=== PATIENT | female | born 1990 | race Caucasian/White ===

== ENCOUNTER 2019-07-29 22:28 | Emergency (ER) | payer OTHER ==
--- NOTE | 2019-07-29 22:36 | PDOC ---
History of Present Illness - General Chief Complaint: Blood Pressure Problem Stated Complaint: HIGH BLOOD PRESSURE - History of Present Illness Initial Comments: The pt is a 29F at 11 wks by LMP who presents for evaluation of high blood pressure and PIMENTEL. The pt states she took her BP at home and noted it was high. She is concerned because in her previous she was hospitalized for 3 three months due to pre-eclampsia. Endorses current, pressure-like PIMENTEL that was gradual onset, b/l, non-radiating, and not exacerbated or alleviated by anything she can identify PMH: pre-eclampsia PSH: C/S (2013) Meds: Prenatals SH: Denies x3 07/29/19 22:40 Past History - Past Medical History Allergies/Adverse Reactions: Allergies Allergy/AdvReac Type Severity Reaction Status Date / Time No Known Allergies Allergy Verified 07/29/19 22:33 COPD: No - Psycho Social/Smoking Cessation Hx Smoking History: Never smoked Review of Systems - Review of Systems Able to Perform ROS?: Yes Comments:: GENERAL/CONSTITUTIONAL: No fever or chills. No weakness HEAD, EYES, EARS, NOSE AND THROAT: No change in vision. No change in hearing. No sore throat CARDIOVASCULAR: No chest pain or shortness of breath RESPIRATORY: Denies cough, hemoptysis GASTROINTESTINAL: No nausea, vomiting, diarrhea or constipation GENITOURINARY: No dysuria, frequency, or change in urination MUSCULOSKELETAL: No joint or muscle swelling or pain. No neck or back pain SKIN: No rash NEUROLOGIC: No vertigo, loss of consciousness, or change in strength/sensation ENDOCRINE: No increased thirst. No abnormal weight change HEMATOLOGIC/LYMPHATIC: No anemia, easy bleeding, or history of blood clots ALLERGIC/IMMUNOLOGIC: No hives or skin allergy 07/29/19 22:36 Is the patient limited Citizen Of [place] proficient: No *Physical Exam - Vital Signs Last Vital Signs Temp Pulse Resp BP Pulse Ox 98.0 F 76 18 141/94 98 07/29/19 22:30 07/29/19 22:30 07/29/19 22:30 07/29/19 22:30 07/29/19 22:30 - Physical Exam GENERAL: Awake, alert, and oriented to person/place/time, in no acute distress HEAD: No signs of trauma, normocephalic, atraumatic EYES: PERRLA, EOMI, sclera anicteric, conjunctiva clear ENT: Hearing grossly normal, nares patent, oropharynx clear without exudates. Moist mucosa LUNGS: No distress, speaks in full sentences, clear to auscultation bilaterally _ HEART: Regular rate and rhythm, normal S1 and S2, no murmurs appreciated, peripheral pulses normal and equal bilaterally._ ABDOMEN: Soft, nontender, normoactive bowel sounds. No guarding, no rebound. No masses_ EXTREMITIES: Normal inspection, Normal range of motion, no edema. No clubbing or cyanosis_ NEUROLOGICAL: Cranial nerves II through XII grossly intact. Normal speech, normal gait, no focal sensorimotor deficits _ SKIN: Warm, Dry 07/29/19 22:36 ED Treatment Course - LABORATORY CBC & Chemistry Diagram: 07/29/19 23:17 07/29/19 23:17 Medical Decision Making - Medical Decision Making The pt is a 29F at 11 wks by LMP who presents for evaluation of HTN and PIMENTEL ED Course CMP, CBC, Beta-quant, UA IVF, Tylenol POCUS w/ IUP, FHT 146 07/29/19 23:27 UA w/o evidence of UTI 07/29/19 23:31 No leukocytosis No anemia 07/29/19 23:58 Repeat BP 130/85 Pt feels PIMENTEL improving CMP/beta-quant still pending 07/30/19 00:38 Lytes unremarkable LFTs wnl No JANICE Beta-quant [id number] Pt feels improved and would like to go home Plan for D/C w/ OBGYN f/u Friday Discharge instructions and return precautions given Patient in agreement and verbalized understanding Dispo: Home 07/30/19 01:02 Discharge - Discharge Information Problems reviewed: Yes Clinical Impression/Diagnosis: Headache Qualifiers: Headache type: unspecified Headache chronicity pattern: unspecified pattern Intractability: not intractable Qualified Code(s): R51 - Headache Hypertension Qualifiers: Hypertension type: unspecified Qualified Code(s): I10 - Essential (primary) hypertension Condition: Stable - Admission No - Follow up/Referral Referrals: Enriqueta Irving [Primary Care Provider] - Meghan Juarez CNM [Certified Nurse General Sales Manager] - - Patient Discharge Instructions Patient Printed Discharge Instructions: DI for High Blood Pressure Additional Instructions: You were seen in the Emergency Department for evaluation of high blood pressure and headache. Your labs were unremarkable. Review the handout provided at discharge. Maintain your follow up with OBGYN on Friday. Return to the Emergency Department if you develop fevers, chest pain, trouble breathing, pain with urination, blood in urine, worsening symptoms, or any new/concerning symptoms. - Post Discharge Activity Work/Back to School Note: Back to Work
[2019-07-29 22:37] VITALS: BMI 28.6
[2019-07-29] MEDS ORDERED: ACETAMINOPHEN 325 MG TABLET (FP) PO ONE ×2 (23:09→23:30)
[2019-07-29] MEDS ORDERED: LACTATED RINGERS SOLUTION 1000 ML INFUS.BAG IV ONE (23:11)
[2019-07-29] MEDS ORDERED: ACETAMINOPHEN 1000 MG/100 ML VIAL (NON FORMULARY) IVPB ONE (23:11)
[2019-07-29] MEDS ORDERED: METOCLOPRAMIDE HCL INJECTION 10 MG/2 ML VIAL IVPB ONE (23:11)
[2019-07-29] MEDS ORDERED: ACETAMINOPHEN 325 MG TABLET (FP) ONE (23:25)
--- NOTE | 2019-07-29 23:27 | PDOC ---
Documentation entered by Arnulfo Bowen SCRIBE, acting as scribe for Rosa Jesus DO. Rosa Jesus DO: This documentation has been prepared by the Andrés michael Daniel, SCRIBE, under my direction and personally reviewed by me in its entirety. I confirm that the documentation accurately reflects all work, treatment, procedures, and medical decision making performed by me. Attending Attestation - Resident Resident Name: Jere Galicia - ED Attending Attestation I have performed the following: I have examined & evaluated the patient, The case was reviewed & discussed with the resident, I agree w/resident's findings & plan, Exceptions are as noted - HPI HPI: 07/29/19 23:13 The patient is a 29 year old female with no past medical history here today for evaluation of high blood pressure. The patient reports that she is 11 weeks and has been getting her blood pressure at home. She states that it has been high with it being 148/98. She also notes associated headaches which happened almost daily and are pressure like. She has been taking tylenol with mild relief and her last dose was at 1 PM. She states that she had high blood pressure during her first and had to be hospitalized for 3 months. Patient denies lightheadedness. Denies fever, chills. Denies chest pain, shortness of breath. Denies nausea, vomiting, diarrhea, abdominal pain. Denies lower extremity edema. Allergies: NKA PCP: Enriqueta Irving - Physicial Exam PE: 07/29/19 23:13 Constitutional: Awake, alert, oriented. No acute distress. Head: Normocephalic. Atraumatic Eyes: PERRL. EOMI. Conjunctivae are not pale. ENT: Mucous membranes are moist and intact. Posterior pharynx without exudates or erythema. Uvula midline. Neck: Supple. Full ROM. No lymphadenopathy. Cardiovascular: Regular rate. Regular rhythm. S1, S2 regular. Distal pulses are 2+ and symmetric. Pulmonary/Chest: No evidence of respiratory distress. Clear to auscultation bilaterally No wheezing, rales or rhonchi. Abdominal: Soft and non-distended. There is no tenderness. No rebound, guarding or rigidity. No organomegaly. No palpable masses. Good bowel sounds. Back: No CVA tenderness. Musculoskeletal: No edema. No cyanosis. No clubbing. Full range of motion in all extremities. No calf tenderness. Radial/pedal pulses are intact and 2+ bilaterally Skin: Skin is warm and dry. No petechiae. No purpura. Neurological: Alert and oriented to person, place, and time. Cranial nerves II-XII are grossly intact. Normal speech. Strength is grossly symmetric. No s ensory deficits. Psychiatric: Good eye contact. Normal interaction, affect and behavior. - Medical Decision Making 07/29/19 23:21 I, Dr. Rosa Jesus, DO, attest that this document has been prepared under my direction and personally reviewed by me in its entirety. I further attest, that it accurately reflects all work, treatment, procedures and medical decision -making performed by me. a/p: 29yo female at 11 weeks gestation with coffman, elevated bp -with prior preg had elevated bp at the end of her preg, was treated in [facility] -pt states intermittent coffman x days and checked her bp at home and it was elevated -pt states she checked her pressure today at home and it was 142/98 -has appt friday with Joanne Juarez but has not see a doc yet with this preg -will send labs, ua -pocus shows an IUP with a crl of 11w4d and fhr 146 -will monitor and reassess -will give tylenol and reglan for pain 07/29/19 23:37 ua neg 07/30/19 00:34 cbc reviewed and stable chem and beta pending 07/30/19 01:02 labs reviewed beta [id number] pt feels better will follow up with RECONSIGNMENT CLERK friday
[2019-07-29 23:31] LABS: PH,URINE 6.5 (5.0-8.0); URINE APPEARANCE CLEAR; URINE BILIRUBIN NEGATIVE (NEGATIVE); URINE COLOR YELLOW; URINE GLUCOSE (UA) NEGATIVE (NEGATIVE); URINE KETONE NEGATIVE (NEGATIVE); URINE LEUK ESTERASE NEGATIVE (NEGATIVE); URINE NITRITE NEGATIVE (NEGATIVE); URINE PROTEIN NEGATIVE (NEGATIVE); URINE UROBILINOGEN 0.2 mg/dL (0.2-1.0)
[2019-07-29 23:31] LABS: BASO % 0.4 % (0-2.0); EOS % 1.4 % (0-4.5); HEMATOCRIT 37.8 % (32.4-45.2); LYMPH % 25.5 % (8-40); MCH 30.9 pg (25.7-33.7); MCHC 34.4 g/dl (32.0-36.0); MEAN CELL VOLUME 89.9 fl (80-96); MEAN PLT VOLUME 7.2 fl (7.5-11.1); MONO % 7.7 % (3.8-10.2); PLATELET COUNT 277 K/MM3 (134-434); RDW 13.3 % (11.6-15.6); WHITE BLOOD COUNT 8.7 K/mm3 (4.0-10.0)
[2019-07-29 23:35] VITALS: BP 131/83; PULSE 80; TEMP 98.2
[2019-07-29] MEDS ORDERED: METOCLOPRAMIDE HCL INJECTION 10 MG/2 ML VIAL ONE (23:42)
[2019-07-30 00:52] LABS: ALBUMIN 3.3 g/dl (3.4-5.0); BILIRUBIN,TOTAL 0.2 mg/dL (0.2-1); BLOOD UREA NITROGEN 6.6 mg/dL (7-18); CALCIUM 8.8 mg/dL (8.5-10.1); CREATININE 0.5 mg/dL (0.55-1.3); POTASSIUM 3.9 mmol/L (3.5-5.1); TOT PROT 6.9 g/dl (6.4-8.2)
== END 2019-07-30 01:19 | disposition home or self-care (01) ==
LOC: JER 22:28
PROC: 3E033GC Introduction of Other Therapeutic Substance into Peripheral Vein, Percutaneous Approach (ICD-10-PCS; principal; 2019-07-29)
PROC: BY49ZZZ Ultrasonography of First Trimester, Single Fetus (ICD-10-PCS; 2019-07-29)
DX: O26.891 Other specified pregnancy related conditions, first trimester (principal); O13.1 Gestational [pregnancy-induced] hypertension without significant proteinuria, first trimester; Z3A.11 11 weeks gestation of pregnancy
CPT/HCPCS: 36415; 76815; 80053; 81003; 84702; 85025; 87086; 96374; 99284-25

== ENCOUNTER 2021-01-26 15:00 | Inpatient (IN) | payer OTHER ==
[2021-01-26] MEDS ORDERED: LIDOCAINE 5% TOPICAL PATCH TP ONE (16:39)
[2021-01-26] MEDS ORDERED: CYCLOBENZAPRINE HCL 10 MG TABLET (FP) PO ONE (16:46)
[2021-01-26] MEDS ORDERED: KETOROLAC TROMETHAMINE 15 MG/ML VIAL IM ONE (16:46)
[2021-01-26] MEDS ORDERED: LIDOCAINE 5% TOPICAL PATCH ONE (16:52)
[2021-01-26] MEDS ORDERED: DEXAMETHASONE 4 MG TABLET (FP) PO ONE (16:56)
[2021-01-26] MEDS ORDERED: diazePAM 5 MG TABLET PO ONE (16:56)
[2021-01-26] MEDS ORDERED: DEXAMETHASONE 4 MG TABLET (FP) ONE (17:02)
[2021-01-26] MEDS ORDERED: KETOROLAC TROMETHAMINE 15 MG/ML VIAL ONE (17:03)
[2021-01-26] MEDS ORDERED: CYCLOBENZAPRINE HCL 10 MG TABLET (FP) ONE (17:03)
[2021-01-26] MEDS ORDERED: diazePAM 5 MG TABLET ONE (17:03)
[2021-01-26 19:26] LABS: BASO % 0.2 % (0-2.0); EOS % 0.1 % (0-4.5); HEMATOCRIT 41.3 % (32.4-45.2); HEMOGLOBIN 14.4 GM/dL (10.7-15.3); LYMPH % 12.3 % (8-40); MCH 29.9 pg (25.7-33.7); MCHC 34.8 g/dl (32.0-36.0); MEAN CELL VOLUME 85.8 fl (80-96); MEAN PLT VOLUME 7.9 fl (7.5-11.1); MONO % 3.1 % (3.8-10.2); NEUT % 84.3 % (42.8-82.8); PLATELET COUNT 307 10^3/uL (134-434); RBC 4.81 M/mm3 (3.60-5.2); RDW 13.4 % (11.6-15.6); WHITE BLOOD COUNT 8.7 K/mm3 (4.0-10.0)
[2021-01-26 19:45] LABS: BLOOD UREA NITROGEN 8.5 mg/dL (7-18); CALCIUM 9.2 mg/dL (8.5-10.1)
[2021-01-26 19:49] LABS: CREATININE 0.6 mg/dL (0.55-1.3)
[2021-01-26] MEDS ORDERED: ACETAMINOPHEN 325 MG TABLET (FP) PO PRN (19:57)
[2021-01-26] MEDS ORDERED: morphine SULFATE 4 MG/ML VIAL IVPUSH PRN (20:33)
[2021-01-26] MEDS ORDERED: LIDOCAINE PATCH REMOVAL MC SCH (22:00)
[2021-01-26] MEDS ORDERED: ACETAMINOPHEN INJECTION 100 ML IVPB ONE (22:59)
[2021-01-26] MEDS: ACETAMINOPHEN 1000 MG/100 ML VIAL (NON FORMULARY) IVPB PRN (23:00)
[2021-01-26 23:15] LABS: PH,URINE 5.5 (5.0-8.0); URINE APPEARANCE CLEAR; URINE BILIRUBIN NEGATIVE (NEGATIVE); URINE COLOR YELLOW; URINE GLUCOSE (UA) NEGATIVE (NEGATIVE); URINE KETONE 2+ (NEGATIVE); URINE LEUK ESTERASE NEGATIVE (NEGATIVE); URINE NITRITE NEGATIVE (NEGATIVE); URINE PROTEIN NEGATIVE (NEGATIVE); URINE UROBILINOGEN 0.2 mg/dL (0.2-1.0)
[2021-01-27] MEDS: MORPHINE SULFATE 2 MG/ML VIAL IVPUSH PRN ×2 (03:10→08:00)
[2021-01-27 03:47] VITALS: BMI 27.2
[2021-01-27 09:12] LABS: HEMATOCRIT 40.5 % (32.4-45.2); HEMOGLOBIN 14.3 GM/dL (10.7-15.3); MCHC 35.2 g/dl (32.0-36.0); MEAN CELL VOLUME 85.4 fl (80-96); MEAN PLT VOLUME 7.7 fl (7.5-11.1); PLATELET COUNT 346 10^3/uL (134-434); RBC 4.75 M/mm3 (3.60-5.2); RDW 13.4 % (11.6-15.6); WHITE BLOOD COUNT 10.2 K/mm3 (4.0-10.0)
[2021-01-27 09:32] LABS: ALBUMIN 3.8 g/dl (3.4-5.0); CALCIUM 9.2 mg/dL (8.5-10.1)
[2021-01-27 09:33] LABS: BLOOD UREA NITROGEN 14.6 mg/dL (7-18); MAGNESIUM 2.1 mg/dL (1.8-2.4)
[2021-01-27 09:36] LABS: CREATININE 0.6 mg/dL (0.55-1.3)
[2021-01-27 09:37] LABS: BILIRUBIN,TOTAL 0.9 mg/dL (0.2-1); TOT PROT 7.6 g/dl (6.4-8.2)
[2021-01-27] MEDS: DOCUSATE SODIUM 100 MG CAPSULE (FP) PO SCH (09:37)
[2021-01-27] MEDS: ENOXAPARIN NA (PORCINE) 40 MG/0.4 ML DISP.SYRIN SQ SCH (09:37)
[2021-01-27] MEDS: methylPREDNISolone 4 MG TABLET PO SCH (11:36)
[2021-01-27] MEDS: GABAPENTIN 300 MG CAPSULE PO SCH ×2 (11:36→21:15)
[2021-01-27] MEDS: CYCLOBENZAPRINE HCL 5 MG TABLET PO PRN (14:06)
[2021-01-27] MEDS: KETOROLAC TROMETHAMINE 15 MG/ML VIAL IVPUSH PRN (15:56)
[2021-01-27] MEDS: ACETAMINOPHEN 1000 MG/100 ML VIAL (NON FORMULARY) IVPB PRN (19:00)
[2021-01-27] MEDS ORDERED: ACETAMINOPHEN 500 MG TABLET (FP) PO PRN (20:45)
[2021-01-28] MEDS: CYCLOBENZAPRINE HCL 5 MG TABLET PO PRN ×2 (00:46→09:49)
[2021-01-28] MEDS: KETOROLAC TROMETHAMINE 15 MG/ML VIAL IVPUSH PRN ×4 (02:40→23:30)
[2021-01-28] MEDS: oxyCODONE HCL 5 MG TABLET PO PRN ×2 (06:12→12:51)
[2021-01-28] MEDS: ENOXAPARIN NA (PORCINE) 40 MG/0.4 ML DISP.SYRIN SQ SCH (09:49)
[2021-01-28] MEDS: methylPREDNISolone 4 MG TABLET PO SCH (09:49)
[2021-01-28] MEDS: GABAPENTIN 300 MG CAPSULE PO SCH ×2 (09:49→21:19)
[2021-01-28] MEDS: DOCUSATE SODIUM 100 MG CAPSULE (FP) PO SCH (09:49)
[2021-01-29] MEDS: oxyCODONE HCL 5 MG TABLET PO PRN ×3 (04:40→10:58)
[2021-01-29] MEDS: KETOROLAC TROMETHAMINE 15 MG/ML VIAL IVPUSH PRN (06:32)
[2021-01-29] MEDS: ENOXAPARIN NA (PORCINE) 40 MG/0.4 ML DISP.SYRIN SQ SCH (10:19)
[2021-01-29] MEDS: methylPREDNISolone 4 MG TABLET PO SCH (10:19)
[2021-01-29] MEDS: DOCUSATE SODIUM 100 MG CAPSULE (FP) PO SCH ×2 (10:19→21:42)
[2021-01-29] MEDS: GABAPENTIN 300 MG CAPSULE PO SCH ×5 (10:20→21:42)
[2021-01-29] MEDS ORDERED: HYDROmorphone HCl 2 MG/ML VIAL IVPB PRN (11:00)
[2021-01-29] MEDS: SODIUM CHLORIDE 1,000 ML IV SCH (12:42)
[2021-01-29] MEDS ORDERED: BUPIVACAINE HCL/PF 0.5% (5MG/ML) 10 ML VIAL ONE (12:54)
[2021-01-29] MEDS ORDERED: THROMBIN (BOVINE) 5,000 UNIT VIAL TP ONE ×3 (13:02→14:00)
[2021-01-29] MEDS ORDERED: ROCURONIUM BROMIDE 50 MG/5 ML SYRINGE ONE (13:09)
[2021-01-29] MEDS ORDERED: fentaNYL CITRATE 250 MCG/5 ML VIAL ONE (13:09)
[2021-01-29] MEDS ORDERED: LIDOCAINE HCL/PF 2% SDV 5ML VIAL ONE (13:09)
[2021-01-29] MEDS ORDERED: PROPOFOL 20 ML ONE ×2 (13:09)
[2021-01-29] MEDS ORDERED: ceFAZolin SODIUM 1 GM VIAL IVPB ONE (13:25)
[2021-01-29] MEDS ORDERED: BACITRACIN 50,000 UNITS VIAL TP ONE (14:00)
[2021-01-29] MEDS ORDERED: BUPIVACAINE HCL/PF 0.5% (5 MG/ML) 30 ML VIAL IJ ONE (14:33)
[2021-01-29] MEDS ORDERED: NEOSTIGMINE METHYLSULFATE 0.5 MG/1 ML - 10 ML MDV ONE ×3 (14:46)
[2021-01-29] MEDS ORDERED: DEXAMETHASONE SOD PHOSPHATE 4 MG/1 ML VIAL ONE (14:47)
[2021-01-29] MEDS ORDERED: ceFAZolin SODIUM 1 GM VIAL ONE (14:47)
[2021-01-29] MEDS ORDERED: KETOROLAC TROMETHAMINE 30 MG/1 ML VIAL ONE (14:47)
[2021-01-29] MEDS ORDERED: GLYCOPYRROLATE 0.2 MG/1 ML VIAL ONE (14:47)
[2021-01-29] MEDS ORDERED: ONDANSETRON 4 MG/2 ML VIAL ONE (14:47)
[2021-01-29] MEDS ORDERED: PROMETHAZINE HCL 25 MG/1 ML VIAL IVPUSH PRN (15:07)
[2021-01-29] MEDS ORDERED: ONDANSETRON 4 MG/2 ML VIAL IVPUSH PRN (15:07)
[2021-01-29] MEDS ORDERED: oxyCODONE HCL 5 MG TABLET PO PRN ×2 (15:07→15:14)
[2021-01-29] MEDS: D5-1/2NS+20 MEQ KCL - 20 MEQ/1,000 ML INFUS.BAG IV SCH (18:42)
[2021-01-29] MEDS: CEFAZOLIN 2 GM in DEXTROSE 5%-WATER - 2 GM/100 ML IVPB IVPB SCH (18:43)
[2021-01-29] MEDS: diazePAM 5 MG TABLET PO SCH ×2 (18:44→23:20)
[2021-01-30] MEDS: CEFAZOLIN 2 GM in DEXTROSE 5%-WATER - 2 GM/100 ML IVPB IVPB SCH (02:00)
[2021-01-30] MEDS: D5-1/2NS+20 MEQ KCL - 20 MEQ/1,000 ML INFUS.BAG IV SCH (04:14)
[2021-01-30] MEDS: diazePAM 5 MG TABLET PO SCH ×3 (06:27→23:15)
[2021-01-30] MEDS: DOCUSATE SODIUM 100 MG CAPSULE (FP) PO SCH ×3 (06:27→21:03)
[2021-01-30 08:28] LABS: BASO % 0.2 % (0-2.0); EOS % 0.3 % (0-4.5); HEMATOCRIT 39.4 % (32.4-45.2); HEMOGLOBIN 13.9 GM/dL (10.7-15.3); LYMPH % 22.6 % (8-40); MCHC 35.2 g/dl (32.0-36.0); MEAN CELL VOLUME 85.2 fl (80-96); MEAN PLT VOLUME 7.3 fl (7.5-11.1); MONO % 9.3 % (3.8-10.2); NEUT % 67.6 % (42.8-82.8); PLATELET COUNT 316 10^3/uL (134-434); RBC 4.63 M/mm3 (3.60-5.2); WHITE BLOOD COUNT 9.1 K/mm3 (4.0-10.0)
[2021-01-30 08:41] LABS: CALCIUM 8.7 mg/dL (8.5-10.1)
[2021-01-30 08:42] LABS: ALBUMIN 3.4 g/dl (3.4-5.0); BLOOD UREA NITROGEN 12.7 mg/dL (7-18)
[2021-01-30 08:45] LABS: CREATININE 0.7 mg/dL (0.55-1.3)
[2021-01-30 08:46] LABS: BILIRUBIN,TOTAL 0.4 mg/dL (0.2-1)
[2021-01-30 08:47] LABS: TOT PROT 7.1 g/dl (6.4-8.2)
[2021-01-30] MEDS: GABAPENTIN 300 MG CAPSULE PO SCH ×2 (09:32→21:03)
[2021-01-30] MEDS ORDERED: PT OWN MED DRAWER 7, Y5N ONE (09:32)
[2021-01-30] MEDS: methylPREDNISolone 4 MG TABLET PO SCH (09:33)
[2021-01-30] MEDS: SODIUM CHLORIDE 1,000 ML IV SCH (14:46)
[2021-01-31] MEDS: DOCUSATE SODIUM 100 MG CAPSULE (FP) PO SCH (05:35)
[2021-01-31] MEDS: diazePAM 5 MG TABLET PO SCH (07:31)
[2021-01-31] MEDS ORDERED: PT OWN MED DRAWER 7, Y5N ONE (10:01)
[2021-01-31] MEDS: methylPREDNISolone 4 MG TABLET PO SCH (10:04)
[2021-01-31] MEDS: GABAPENTIN 300 MG CAPSULE PO SCH (10:04)
[2021-01-31 10:06] VITALS: BP 128/79; PULSE 96; TEMP 98
== END 2021-01-31 13:32 | disposition home or self-care (01) | DRG 310 ==
LOC: JER 15:00 → JERBED 18:52 → J6S 01-27 03:04
PROVIDERS: ADMIT Internal Medicine; ATTEND Internal Medicine
PROC: 01NB0ZZ Release Lumbar Nerve, Open Approach (ICD-10-PCS; 2021-01-29)
PROC: 0SB40ZZ Excision of Lumbosacral Disc, Open Approach (ICD-10-PCS; principal; 2021-01-29 12:00)
DX: M51.17 Intervertebral disc disorders with radiculopathy, lumbosacral region (principal); M54.5 Low back pain; M25.552 Pain in left hip
CPT/HCPCS: 36415; 72100-TC-FY; 72148-TC; 80048; 80053; 81003; 83735; 84100; 84703; 85025; 85027; 86850; 86900; 86901; 93005; 93010; 93971-TC; 94760; 97116-GP; 97161-GP; 99285-25; C9803; J0131; U0003; U0005

== ENCOUNTER 2023-09-25 09:45 | Emergency (ER) | payer OTHER ==
[2023-09-25 10:05] VITALS: BP 133/96; PULSE 78; RESP 16; TEMP 98.2; BMI 31.4
[2023-09-25] MEDS ORDERED: LIDOCAINE 4% PATCH TP ONE (10:35)
[2023-09-25] MEDS ORDERED: KETOROLAC TROMETHAMINE 30 MG/1 ML VIAL ONE (10:35)
[2023-09-25] MEDS ORDERED: CYCLOBENZAPRINE HCL 10 MG TABLET (FP) ONE (10:35)
[2023-09-25] MEDS ORDERED: ACETAMINOPHEN 500 MG TABLET (FP) ONE (10:35)
[2023-09-25] MEDS: ACETAMINOPHEN 500 MG TABLET (FP) PO ONE (10:41)
[2023-09-25] MEDS: LIDOCAINE 4% PATCH TP ONE (10:41)
[2023-09-25] MEDS: CYCLOBENZAPRINE HCL 10 MG TABLET (FP) PO ONE (10:41)
[2023-09-25] MEDS: KETOROLAC TROMETHAMINE 30 MG/1 ML VIAL IM ONE (10:41)
[2023-09-25] MEDS ORDERED: LIDOCAINE PATCH REMOVAL MC ONE (22:00)
== END 2023-09-25 11:49 | disposition home or self-care (01) ==
LOC: JERFT 09:45
PROC: 3E0233Z Introduction of Anti-inflammatory into Muscle, Percutaneous Approach (ICD-10-PCS; principal; 2023-09-25)
DX: M54.50 Low back pain, unspecified (principal); S39.012A Strain of muscle, fascia and tendon of lower back, initial encounter; X50.1XXA Overexertion from prolonged static or awkward postures, initial encounter
CPT/HCPCS: 72100-TC-FY; 99284-25